=== PATIENT | female | born 1935 | race Caucasian/White ===

== ENCOUNTER → 2017-01-14 | Outpatient (CLI) | payer MEDICARE ==
[~2017-01-14] MED LIST: ACET-2321 PO; ASPI81TA2 PO; CALC-686 PO; CARV3.123 PO; CHOL200024 PO; CLON0.1T PO; LAMO100T PO; LEVO50TA4 PO; LUTE10TA2 PO; MAGN-49 PO; MAGN250T33 PO; MECL-103 PO; MULT-261 PO; OMEP-122 PO; PROC-14 PO; QUET25TA PO; RAMI5CAP PO
== END ==
LOC: WC.BC 10:17
DX: Z12.31 Encounter for screening mammogram for malignant neoplasm of breast (principal)
CPT/HCPCS: 77063; G0202

== ENCOUNTER 2017-02-14 01:48 | Emergency (ER) | payer MEDICARE ==
[~2017-02-14] VITALS: Ht 149.9 cm; Wt 64.7 kg
[2017-02-14 01:51] VITALS: Ht 149.9 cm; Wt 64.7 kg
[2017-02-14] MEDS ORDERED: NORMAL SALINE 1,000 ML IV ONE (02:23)
[2017-02-14 02:26] LABS: BASOPHILS # (AUTO) 0.1 T/MM3 (0-0.2); EOSINOPHILS # (AUTO) 0.2 T/MM3 (0-0.5); EOSINOPHILS % (AUTO) 2.9 % (0-4); HCT - HEMATOCRIT 34.9 % (36-46); HGB - HEMOGLOBIN 11.7 GM/DL (12-16); IMMATURE GRANULOCYTE # (AUTO) 0.01 T/MM3 (0.00-0.03); IMMATURE GRANULOCYTE % (AUTO) 0.2 % (0.0-0.5); LYMPHOCYTES # (AUTO) 3.7 T/MM3 (1-4.8); LYMPHOCYTES % (AUTO) 58.6 % (23-45); MEAN CORPUSCULAR HGB 30.8 UUG (26-34); MEAN CORPUSCULAR HGB CONC(MCHC 33.5 GM/DL (31-37); MEAN CORPUSCULAR VOLUME 91.8 UM3 (80-100); MEAN PLATELET VOLUME 9.7 UM3 (9.4-12.4); MONOCYTES # (AUTO) 0.5 T/MM3 (0-0.8); NEUTROPHILS #(AUTO)-ABSOLUTE 1.8 T/MM3 (1.8-7.7); NEUTROPHILS % (AUTO) 29.3 % (33-66); WBC - WHITE BLOOD COUNT 6.3 T/MM3 (4.5-11.0)
[2017-02-14 02:30] LABS: INR 0.94 (0.77-1.03); PROTHROMBIN TIME 10.4 SEC (9.48-12.52)
[2017-02-14] MEDS ORDERED: ASPIRIN 81 MG CHEWABLE TABLET PO ONE (02:30)
[2017-02-14 02:35] LABS: ANION GAP 12 MEQ/L (5-15); BUN/CREATININE RATIO 28 RATIO (6-26); CALCIUM 9.8 MG/DL (8.4-10.2); CHLORIDE 106 MEQ/L (98-107); CO2 - CARBON DIOXIDE 28 MEQ/L (22-30); CREATININE 1.6 MG/DL (0.7-1.2); GLOMERULAR FILTRATION RATE 31; GLUCOSE 111 MG/DL (65-110); POTASSIUM 4.5 MEQ/L (3.6-5); SODIUM 146 MEQ/L (134-144)
--- NOTE | 2017-02-14 02:44 | ERPDOC ---
Departure Disposition Decision Date: February 14, 2017 Disposition Decision Time: 04:42 Disposition: 01 DISCHARGED HOME, SELF-CARE Impression Impression Impression: Primary Impression: Atypical chest pain Additional Impression: CRF (chronic renal failure) Chronic kidney disease stage: stage 3 (moderate) Qualified Codes: N18.3 - Chronic kidney disease, stage 3 (moderate) Severity: Mild Condition: Improved Seen By: Physician only Referrals: MAGY JOSEPH MD (PCP) 1 Week Patient Instructions: Noncardiac Chest Pain (ED) Problems/Meds/Labs Reviewed?: Yes Medications reviewed and manag: Yes Additional Instructions: We have evaluated you for various causes of chest pain. We did not find any life -threatening causes of your chest pain. Follow up with your doctor later this week. Follow up care ordered?: Yes Mental Status: Alert, Oriented HPI - Chest Pain General Chief Complaint: Chest Pain Stated Complaint: CHEST PAIN Time Seen by Provider: 02:23 Source: patient Exam Limitations: no limitations HPI - Chest Pain Initial Comments 81yo woman presents to the ER tonight with several days of chest pain. Pt has sharp pain in her left breast at the site of several previous biopsies. Pain has gotten precipitously worse over the last several days. It has also been accompanied by dyspnea at rest and 'anginal' pain. Pain was partially relieved by nitro x2. Pt has a strong FHx of NM; had a full cardiac work up 1 yr ago. Occurred At: home Onset/Timing: Rapid, Getting worse Duration: other Pain/Severity Scale: Now: 3/10, Worst: 8/10 Activities at Onset/Context: rest Location: anterior R Quality: sharp Modifying Factors: IMPROVES WITH: nitroglycerin, WORSE WITH: palpation Associated Symptoms: nausea/vomiting, shortness of breath Chest Pain Radiation: no radiation Nitro Today/Relief: 0.4 mg x 2, provided at home Aspirin Treatment Today: 81 mg x 4, provided by ED Prior Chest Pain/Cardiac Jono: angina Hx of Similar Symptoms: No Allergies: Coded Allergies: morphine (Verified Allergy, Intermediate, CARDIAC, HALLUCINATE, 02/14/17) escitalopram oxalate (Verified Allergy, Mild, HEADACHE,chest pain , ) cephalexin (Verified Allergy, Unknown, 02/14/17) lidocaine (Verified Allergy, Unknown, 02/14/17) prochlorperazine (Verified Allergy, Unknown, 02/14/17) meperidine (Verified Adverse Reaction, Intermediate, HEADACHE, 02/14/17) codeine (Verified Adverse Reaction, Mild, NAUSEA, 02/14/17) hydrocodone bit (Verified Adverse Reaction, Mild, SICK, 02/14/17) metoprolol tartrate (Verified Adverse Reaction, Mild, LOW PULSE, 02/14/17) propoxyphene napsylate (Verified Adverse Reaction, Mild, NAUSEA, 02/14/17) Past History Past Medical History Metabolic: cancer, hypertension, hypothyroidism ENMT: cataracts, other GI: GERD, constipation, ulcers Female: renal insufficiency Musculoskeletal: back pain, osteoarthritis Hematologic: DVT Psychological: bipolar, depression, other Surgical History General: appendix, tonsils Reproductive/: hysterectomy Joint: carpal tunnel, knee Family History Family PMH: FOUND: CAD, CHF, NM, other Vaccines Hx Influenza Vaccination: Yes (MAY 2016) Hx Pneumococcal Vaccination: Yes (4 YEARS AGO) Social History Does patient use chewing tobac: No Second Hand Exposure: No Substance Use Type: does not use Alcohol Intake: none Sexuality: male partner, other Review of Systems Cardiovascular Cardiac: chest pain, dyspnea on exertion Pulmonary Respiratory: dyspnea All other Systems All Other Systems: Reviewed and Negative Physical Exam General General Nourishment: well nourished, well developed, appears stated age, no acute distress, adult, thin General Body Habitus: well groomed Vitals and Pain First Documented Vital Signs Date Time Temp Pulse Resp B/P Pulse Ox O2 Delivery O2 Flow Rate FiO2 02/14/17 01:51 98.6 80 20 160/77 95 Room Air Weight: Kilograms: 64.700 Height (feet): 4 Height (inches): 11.00 Triage Pain Scale: RN VS reviewed by Provider: Yes Normal Exams: Head: Normocephalic w/o trauma Eyes: Pupils are PERRLA w/ EOMI, No scleral icterus, irritation ENMT: No facial trauma, nasal exudates, pharyngeal erythema Neck: Full range of motion, without adenopathy, JVD Lymphatic: No lymphadenopathy Musculoskeletal: No tenderness, or deformity noted Integumentary: No rashes, hives, or bruising noted Neurologic: Patient is alert, and oriented Psychiatric: Patient exhibits, appropriate attention Respiratory (brief) Respiratory: FOUND: clear all bauman, equal bilaterally, symmetrical, NOT FOUND : rales, wheezes Cardiovascular (brief) Cardiac: FOUND: regular rate, regular rhythm, NOT FOUND: click, gallop, murmur , pedal edema, peripheral edema, rub Capillary Refill: <2 sec Pulses: all distal extremities, equal, strong Comments Point tenderness over anterior left chest; worse with palpation. Abdomen (brief) Abdominal Brief: FOUND: bowel normo active x4, soft, NOT FOUND: distended, hepatosplenomegaly, pulsatile mass, tender Differential Diagnoses Considering: Acute NM, Angina, CHF, Costochondritis, Esophageal Spasm, GERD, Pericarditis, Pleurisy, Pneumothorax, Pneumonia, PSVT, Pulmonary Edema, Rib Fracture, Other (Breast cancer, fibrocystic change) Progress Results/Orders Orders Procedure Category Date Status Time Cbc W/Auto LAB 02/14/17 Complete Diff-Reflex Manual 02:23 Bmp - Basic Metabolic LAB 02/14/17 Complete Panel 02:23 Probnp LAB 02/14/17 Complete 02:23 Troponin I W LAB 02/14/17 Complete Hemolysis Index 02:23 INR LAB 02/14/17 Complete 02:23 EKG EKG 02/14/17 Logged 02:23 Chest 1 View RAD 02/14/17 Taken 02:23 Iv Lock (Ed Only) EDM 02/14/17 Transmitted 02:23 Normal Saline (Normal PHA 02/14/17 In Process Saline Iv) 02:23 Aspirin (Asa) PHA 02/14/17 Complete 02:30 Acetaminophen PHA 02/14/17 Complete (Tylenol Extra 04:15 Lab Results Laboratory Tests Test 02/14/17 02:10 White Blood Count 6.3T/MM3 Red Blood Count 3.80M/MM3 Hemoglobin 11.7GM/DL Hematocrit 34.9% Mean Corpuscular Volume 91.8UM3 Mean Corpuscular Hemoglobin 30.8UUG Mean Corpuscular Hemoglobin Concent 33.5GM/DL RDW Standard Deviation 42.7FL Platelet Count 261T/MM3 Mean Platelet Volume 9.7UM3 Immature Granulocyte % (Auto) 0.2% Neutrophils (%) (Auto) 29.3% Lymphocytes (%) (Auto) 58.6% Monocytes (%) (Auto) 8.0% Eosinophils (%) (Auto) 2.9% Basophils (%) (Auto) 1.0% Absolute Immature Granulocyte (auto 0.01T/MM3 Absolute Neutrophils (auto) 1.8T/MM3 Absolute Lymphocytes (auto) 3.7T/MM3 Absolute Monocytes (auto) 0.5T/MM3 Absolute Eosinophils (auto) 0.2T/MM3 Absolute Basophils (auto) 0.1T/MM3 Prothromb Time International Ratio 0.94 Turbidity Sodium Level 146MEQ/L Potassium Level 4.5MEQ/L Chloride Level 106MEQ/L Carbon Dioxide Level 28MEQ/L Anion Gap 12MEQ/L Blood Urea Nitrogen 45.0MG/DL Creatinine 1.6MG/DL Glomerular Filtration Rate Calc 31 BUN/Creatinine Ratio 28RATIO Glucose Level 111MG/DL Calculated Osmolality 294MOSM/KG Calcium Level 9.8MG/DL Icterus Index Troponin I < 0.012ng/ml PC-Iqk-[id number] Natriuretic Peptide 117PG/ML Chemistry Specimen Hemolysis Medications Current ED Medications Sodium Chloride (Normal Saline IV) 1,000 ml @ 125 mls/hr Q8H ONCE IV Last administered on 02/14/17 02:38; Start 02/14/17 at 02:23; Stop 02/14/17 at 10:22 Aspirin (ASA) 324 mg O ONCE PO Last administered on 02/14/17 02:39; Start at 02:30; Stop 02/14/17 at 02:32; Status DC Acetaminophen (Tylenol Extra Strength) 1,000 mg O ONCE PO Last administered on 02/14/17 04:20; Start 02/14/17 at 04:15; Stop 02/14/17 at 04:16; Status DC Progress Progress No evidence of NM, CHF, PNA, PTX, or dissection. Pt thinks that some of her pain is likely related to stress/anxiety. No relief with tylenol; declines anything stronger. Pt voiced understanding of dx, prognosis, tx, and f/u need. EKG EKG : Rate: 60-100 Rhythm: sinus QRS: RBBB, fasicular block Intervals: normal ST/T: non-specific changes Interpreted by: signing physician Xray Xray : Xray: CXR Portable Interpretation: Normal, Interpreted by YONATHAN Bhatt February 14, 2017 02:44
[2017-02-14 02:47] LABS: PROBNP 117 PG/ML (0-175)
[2017-02-14] MEDS ORDERED: ACETAMINOPHEN 500 MG TABLET PO ONE (04:15)
[2017-02-14 05:02] VITALS: BP 157/71; PULSE 51; RESP 30; TEMP 98.6; O2SAT 96
--- NOTE | 2017-02-14 05:02 | NUR ---
DEPART PT GIVEN DI FOR NONCARDIAC CHEST PAIN AND F/U. VERBALIZES UNDERSTANDING OF DI. QUESTIONS ASKED/ANSWERED - DENIES FURTHER QUESTIONS/NEEDS AT THIS TIME. IV SITE REMOVED. PERSONAL BELONGINGS GATHERED. PT ESCORTED TO ED EXIT WHERE FRIEND WAITING WITH PRIVATE VEHICLE. NO SIGN OF DISTRESS AT THIS TIME.
--- NOTE | 2017-02-14 10:29 | DI ---
Indication: ITS.REASON: Chest pain PROCEDURE: CHEST 1 VIEW: Encounter: Initial Comparison: February 22, 2015 FINDINGS: The lungs are clear. There is no abnormal airspace opacity, pleural effusion or pneumothorax identified. The heart size, pulmonary vasculature and mediastinum are within normal limits. No significant skeletal abnormality is seen. IMPRESSION: No acute cardiopulmonary abnormality. .
== END 2017-02-14 05:02 | disposition home or self-care (01) ==
LOC: ED 01:48
DX: R07.89 Other chest pain (principal); I12.9 Hypertensive chronic kidney disease with stage 1 through stage 4 chronic kidney disease, or unspecified chronic kidney disease; N18.3 Chronic kidney disease, stage 3 (moderate)
CPT/HCPCS: 71010; 80048; 83880; 84484; 85025; 85610; 93005; 96360; 96361; 99284; A9270; J7030

== ENCOUNTER → 2017-02-18 | Outpatient (CLI) | payer MEDICARE ==
[~2017-02-18] MED LIST changes: -CARV3.123 PO
== END ==
LOC: IMA 12:10
PROVIDERS: ATTEND Physician Assistant
DX: N64.4 Mastodynia (principal)
CPT/HCPCS: 76642; G0206; G0279